=== PATIENT | male | born 1950 | race African-American/Black ===

== ENCOUNTER 2017-02-19 23:34 | Emergency (ER) | payer MEDICARE, MEDICAID ==
[~2017-02-19] VITALS: Ht 185.4 cm; Wt 68.0 kg
[~2017-02-19 23:34] MED LIST: ACETAMINOPHEN500 M5 PO; ACTOS45 MG ORAL; ASPIR 8181 MG ORAL; BISACODYL5 MG ORAL; CALCIUM 500 +1 EAC6 PO; CEFTRIAXON1 GM/50 ML IV; COLACE100 MG ORAL; DEPAKOTE ER500 MG ORAL; DEPAKOTE250 MG PO; LANTUS5 UNITS SUBQ; METFORMIN HCL1000 M1 ORAL; METRONIDAZOLE500 MG ORAL; MULTI-DAY PLUS1 EAC1 PO; NOVOLOG100 UNIT/4 SQ; STARLIX60 MG ORAL; VANCOMYCIN1 GM/2502 IVPB; VITAMIN C500 M1 ORAL; ZINC SULFATE220 M1 ORAL
[2017-02-20] MEDS ORDERED: Haloperidol 5mg/ml Inj IM ONE
[2017-02-20] MEDS ORDERED: DiphenhydrAMINE 50mg/ml Inj IM ONE
[2017-02-20 02:25] VITALS: BP 147/93
--- NOTE | 2017-02-20 03:38 | Emergency Room Report ---
History of Present Illness General Chief Complaint: Abnormal Labs Source: EMS Present Illness HPI Patient is a 66-year-old male sent in by assisted after reportedly refusing medications for several days. The patient prior history of leg infection. He had previously been given vancomycin IV. Patient stated that he did not want be seen. And did not want any laboratory testing. History markedly limited by patient's poor cooperation Allergies: Coded Allergies: No Known Allergies (Unverified , 10/30/15) Patient History Past Medical History: see triage record Reviewed Nursing Documentation: PMH: Agreed, PSxH: Agreed Nursing Documentation-PMH Hx Cardiac Problems: No Hx Hypertension: Yes Hx Diabetes: Yes Hx Cancer: No Hx Gastrointestinal Problems: Yes Hx Dialysis: Yes - TYPE 2 DM Hx Neurological Problems: Yes Hx Seizures: Yes Review of Systems All Other Systems: limited - by poor cooperation Physical Exam Vital Signs Date Time Temp Pulse Resp B/P (MAP) Pulse Ox O2 Delivery O2 Flow Rate FiO2 02/19/17 23:08 98.4 82 14 147/93 100 Room Air Sp02 EP Interpretation: reviewed, normal General Appearance: normal inspection, alert Head: atraumatic ENT: normal ENT inspection, hearing grossly normal, normal voice Neck: normal inspection, full range of motion, supple, no bony tend Respiratory: normal inspection, lungs clear, normal breath sounds, no respiratory distress, no retraction, no wheezing Cardiovascular #1: regular rate, rhythm Gastrointestinal: normal inspection, soft Neurologic: alert, oriented x3, responsive, speech normal Psychiatric: normal inspection, judgement/insight normal, other - agitated intermittently Medical Decision Making Diagnostic Impression: Primary Impression: Foot pain, right ER Course Patient presented for foot pain. The patient refused all diagnostic testing as well as medical treatment. The patient refused exam and attempted to kick me when I attempted to look at his foot. The patient appears awake alert. The patient stated that he did not want to be at the hospital and did not want any treatment. Patient is alert and oriented. He does not appear to be responding to internal stimuli. The patient was sent back to his assisted. Last Vital Signs Date Time Temp Pulse Resp B/P (MAP) Pulse Ox O2 Delivery O2 Flow Rate FiO2 02/19/17 23:08 98.4 82 14 147/93 100 Room Air Status: unchanged Disposition: [facility] Condition: Unknown Referrals: BENITA WYNNE (PCP) Patient Instructions: Diabetes and Foot Care Kayden Kenny Feb 20, 2017 03:38
== END 2017-02-20 02:25 ==
LOC: EDBD 23:34 → EMR 23:51
DX: M79.671 Pain in right foot (principal); I10 Essential (primary) hypertension; E11.9 Type 2 diabetes mellitus without complications
CPT/HCPCS: 99282